=== PATIENT | male | born 1990 | race Caucasian/White ===

== ENCOUNTER 2017-11-11 07:16 | Emergency (ER) | payer SELFPAY ==
[2017-11-11] MEDS ORDERED: IPRATROPIUM/ALBUTEROL 3 ML VIAL NEB ONE (07:37)
[2017-11-11] MEDS ORDERED: ACETAMINOPHEN 325 MG TAB PO ONE (07:55)
[2017-11-11] MEDS ORDERED: ACETAMINOPHEN 325 MG TAB ONE (07:56)
--- NOTE | 2017-11-11 07:58 | RAD ---
EXAM DESCRIPTION: XR CHEST 2 VIEWS CLINICAL HISTORY: chest discomfort, cough, rales FELICITY COMPARISON: None TECHNIQUE: PA/lateral FINDINGS: Heart size is normal. The lungs are clear. No acute bony abnormality. IMPRESSION: No acute cardiopulmonary process. Electronically signed by: Jake Arceo MD 11/11/2017 7:56 AM CDT
[2017-11-11] MEDS ORDERED: predniSONE 20 MG TAB PO ONE (09:05)
[2017-11-11] MEDS ORDERED: AMOXICILLIN & POT CLAVULANATE 875 MG TAB PO ONE (09:05)
[2017-11-11] MEDS ORDERED: ASPIRIN TABLET 325 MG TAB PO ONE (09:06)
[2017-11-11 12:43] VITALS: BP 108/58
--- NOTE | 2017-11-11 13:16 | ED.PDOC ---
History of Present Illness - General Chief Complaint: Cardiovascular Problem Stated Complaint: chest pain Time Seen by Provider: 11/11/17 07:32 Source: patient Exam Limitations: no limitations - History of Present Illness Initial Comments: the patient is a 27-year-old male presenting to the emergency room secondary to feeling of chest pain that is primarily to the left upper sternal border that started this morning when he woke up. He also woke up with a headache. There is some questionable history of illicit substance use. No history of any cardiac problems. 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 No history of any recurrent lung infections. The pain is worse with taking a deep breath. He did have a cough this morning. He does have some rales at the left upper lobe. No abdominal pain. No chest pain elsewhere. No syncope. No palpitations. Again no previous heart problems.headache was relieved after Tylenol here. Timing/Duration: 1-3 hours Severity: moderate Improving Factors: nothing Worsening Factors: movement Associated Symptoms: cough Allergies/Adverse Reactions: Allergies NO KNOWN ALLERGY Allergy (Verified 11/11/17 07:38) Home Medications: Ambulatory Orders Amoxicillin & Pot Clavulanate [Augmentin Tab] 875 mg PO BID #14 tab 11/11/17 predniSONE [Prednisone] 20 mg PO DAILY #5 tab 11/11/17 Review of Systems - Review of Systems Constitutional: States: no symptoms reported EENTM: States: no symptoms reported Respiratory: States: cough Cardiology: States: chest pain Gastrointestinal/Abdominal: States: no symptoms reported Genitourinary: States: no symptoms reported Musculoskeletal: States: no symptoms reported Skin: States: no symptoms reported Neurological: States: headache Endocrine: States: no symptoms reported All other Systems: No Change from Baseline Past Medical History (General) - Patient Medical History Hx Seizures: No Hx Stroke: No Hx Dementia: No Hx Asthma: No Hx of COPD: No Hx Cardiac Disorders: No Hx Congestive Heart Failure: No Hx Pacemaker: No Hx Hypertension: No Hx Thyroid Disease: No Hx Diabetes: No Hx Gastroesophageal Reflux: No Hx Renal Disease: No Hx Cancer: No Hx of HIV: No Hx Hepatitis C: No Hx MRSA: No Surgical History: no surgical history - Vaccination History Hx Tetanus, Diphtheria Vaccination: Yes Hx Influenza Vaccination: No Hx Pneumococcal Vaccination: No Immunizations Up to Date: No - Social History Hx Tobacco Use: Yes Hx Chewing Tobacco Use: No Hx Alcohol Use: No Hx Substance Use: No Hx Substance Use Treatment: No Hx Depression: No Feels Threatened In Home Enviroment: No Feels Threatened In a Relationship: No Hx Physical Abuse: No Hx Emotional Abuse: No Hx Suspected Abuse: No - Female History Patient is a Female of Child Bearing Age (10 -59 yrs old): No Patient : No Family Medical History - Family History Father Hx Cardiac Disease: Yes Physical Exam - Physical Exam General Appearance: Alert, Comfortable, No apparent distress Eye Exam: bilateral normal Ears, Nose, Throat: hearing grossly normal, normal ENT inspection, normal pharynx Neck: full range of motion, supple Respiratory: no respiratory distress, no accessory muscle use, rales - left upper lobe, other - the patient does have chest wall tenderness to palpation just to the left of the upper sternal border. No deformity. No bruising. Cardiovascular/Chest: normal peripheral pulses, regular rate, rhythm, no edema Peripheral Pulses: radial,right: 2+, radial,left: 2+, dorsalis pedis,right: 2+, dorsalis pedis,left: 2+ Gastrointestinal/Abdominal: non tender, soft Rectal Exam: deferred Back Exam: normal inspection, no CVA tenderness, no vertebral tenderness Extremity: normal range of motion, non-tender, normal inspection, no pedal edema , normal capillary refill Neurologic: oxygen tank filler II-XII nml as tested, alert, normal mood/affect, oriented x 3 Skin Exam: normal color Comments: Vital Signs - 24 hr 11/11/17 11/11/17 11/11/17 07:24 07:29 08:03 Temperature 97.6 F Pulse Rate 78 Pulse Rate [ 85 89 Apical] Respiratory 18 22 18 Rate Blood Pressure 137/77 [Left Arm] O2 Sat by Pulse 100 99 Oximetry 11/11/17 11/11/17 11/11/17 08:24 10:51 11:50 Temperature Pulse Rate Pulse Rate [ 85 60 58 L Apical] Respiratory 16 16 18 Rate Blood Pressure 127/71 116/70 102/58 [Left Arm] O2 Sat by Pulse 99 97 96 Oximetry 11/11/17 12:42 Temperature Pulse Rate Pulse Rate [ 63 Apical] Respiratory 16 Rate Blood Pressure 108/58 [Left Arm] O2 Sat by Pulse 100 Oximetry Progress - Progress Progress: 11/11/17 13:18 the patient is a 27-year-old male presenting to the emergency room secondary to chest pain that appears to be pleuritic in nature based on the clinical exam lab work EKG telemetry monitoring. 2 sets of cardiac enzymes are negative. EKG is reassuring. On clinical exam the patient has obvious left upper lobe rails but no definite infiltrate seen on the x-ray. The patient is going to be placed on Augmentin twice daily for the next 7 days for the possibility of an early pneumonia as well as prednisone once daily for the next 5 days for the pleuritis. He needs to stop smoking. 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 He needs to avoid any illicit substances. He needs to keep himself hydrated. ER warnings were given for any significant worsening. He should follow back up with his primary care doctor towards the end of this week. - Results/Orders Results/Orders: 11/11/17 07:36 Telemetry .CONTINUOUS normal sinus rhythm Chest x-ray shows no evidence of any significant infiltrate, cardiomegaly or fluid overload. No pneumothorax. No obvious lobar pneumonia. 11/11/17 07:45 EKG STAT mild right axis deviation. Borderline voltage for LVH. Normal sinus rhythm. Normal corrected QT interval. No acute ST segment changes concerning for ischemia. Laboratory Results - last 24 hr 11/11/17 11/11/17 11/11/17 07:50 07:50 07:50 WBC 5.4 RBC 5.24 Hgb 15.5 Hct 45.9 MCV 87.4 MCH 29.6 MCHC 33.8 RDW 13.7 Plt Count 203 MPV 9.1 Absolute Neuts (auto) 2.70 Absolute Lymphs (auto) 1.80 Absolute Monos (auto) 0.80 Absolute Eos (auto) 0.20 Absolute Basos (auto) 0.00 Neutrophils % 49.5 Lymphocytes % 32.7 Monocytes % 14.1 H Eosinophils % 3.2 Basophils % 0.5 PT 11.8 INR 1.020 PTT (SP) 29.8 Sodium Potassium Chloride Carbon Dioxide Anion Gap BUN Creatinine BUN/Creatinine Ratio Random Glucose Serum Osmolality Calcium Total Bilirubin AST ALT Alkaline Phosphatase Creatine Kinase 138 CK-MB (CK-2) 1.8 CK-MB (CK-2) % Commercial Electric[employer] Troponin I 0.00 L B-Natriuretic Peptide < 5.0 Serum Total Protein Albumin Globulin Albumin/Globulin Ratio Amylase 40 11/11/17 11/11/17 07:50 12:00 WBC RBC Hgb Hct MCV MCH MCHC RDW Plt Count MPV Absolute Neuts (auto) Absolute Lymphs (auto) Absolute Monos (auto) Absolute Eos (auto) Absolute Basos (auto) Neutrophils % Lymphocytes % Monocytes % Eosinophils % Basophils % PT INR PTT (SP) Sodium 139 Potassium 3.6 Chloride 105 Carbon Dioxide 27 Anion Gap 10.6 L BUN 9 Creatinine 0.86 BUN/Creatinine Ratio 10.5 Random Glucose 78 Serum Osmolality 275.1 Calcium 9.1 Total Bilirubin 0.4 AST 24 ALT 19 Alkaline Phosphatase 51 Creatine Kinase 137 CK-MB (CK-2) 1.6 CK-MB (CK-2) % 1.17 Troponin I 0.00 L B-Natriuretic Peptide Serum Total Protein 7.5 Albumin 4.6 Globulin 2.9 Albumin/Globulin Ratio 1.6 Amylase - EKG/XRAY/CT CT Ordered: No CT Interpretation Call Back: No Departure - Departure Clinical Impression: Pleuritis, Pneumonitis Disposition: Discharge to Home or Self Care Condition: Fair Departure Forms: ED Discharge - Pt. Copy, Patient Portal Self Enrollment Instructions: Pleuritic Chest Pain (DC) Diet: regular diet Activity: increase activity as tolerated Prescriptions: Amoxicillin & Pot Clavulanate [Augmentin Tab] 875 mg PO BID #14 tab predniSONE [Prednisone] 20 mg PO DAILY #5 tab Home Medications: Ambulatory Orders Amoxicillin & Pot Clavulanate [Augmentin Tab] 875 mg PO BID #14 tab 11/11/17 predniSONE [Prednisone] 20 mg PO DAILY #5 tab 11/11/17 Additional Instructions: the patient is a 27-year-old male presenting to the emergency room secondary to chest pain that appears to be pleuritic in nature based on the clinical exam lab work EKG telemetry monitoring. 2 sets of cardiac enzymes are negative. EKG is reassuring. On clinical exam the patient has obvious left upper lobe rails but no definite infiltrate seen on the x-ray. The patient is going to be placed on Augmentin twice daily for the next 7 days for the possibility of an early pneumonia as well as prednisone once daily for the next 5 days for the pleuritis. He needs to stop smoking. 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 He needs to avoid any illicit substances. He needs to keep himself hydrated. ER warnings were given for any significant worsening. He should follow back up with his primary care doctor towards the end of this week.
[2017-11-11 13:31] VITALS: TEMP 98.3; O2SAT 99
== END 2017-11-11 13:31 | disposition home or self-care (01) ==
LOC: ER 07:16
DX: J18.9 Pneumonia, unspecified organism (principal); R09.1 Pleurisy; Z87.891 Personal history of nicotine dependence; F17.200 Nicotine dependence, unspecified, uncomplicated
CPT/HCPCS: 36415; 71046; 80053; 82150; 82550; 82553; 83880; 84484; 85025; 85610; 85730; 93005; 94640; J7512; J7620

== ENCOUNTER 2018-07-07 09:22 | Emergency (ER) | payer SELFPAY ==
--- NOTE | 2018-07-07 11:37 | ED.PDOC ---
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 Timing/Duration: 24 hours, constant Severity: moderate Improving Factors: nothing Worsening Factors: nothing Associated Symptoms: other - see hpi Allergies/Adverse Reactions: Allergies NO KNOWN ALLERGY Allergy (Verified 11/11/17 07:38) Home Medications: Ambulatory Orders Prochlorperazine Tab [Compazine Tab] 10 mg PO TID PRN #20 tab 07/07/18 Review of Systems - Review of Systems Constitutional: States: no symptoms reported EENTM: States: no symptoms reported Respiratory: States: no symptoms reported Cardiology: States: no symptoms reported Gastrointestinal/Abdominal: States: no symptoms reported Genitourinary: States: no symptoms reported Musculoskeletal: States: no symptoms reported Skin: States: no symptoms reported Neurological: States: headache Endocrine: States: no symptoms reported Hematologic/Lymphatic: States: no symptoms reported Past Medical History (General) - Patient Medical History Hx Seizures: No Hx Stroke: No Hx Dementia: No Hx Asthma: No Hx of COPD: No Hx Cardiac Disorders: No Hx Congestive Heart Failure: No Hx Pacemaker: No Hx Hypertension: No Hx Thyroid Disease: No Hx Diabetes: No Hx Gastroesophageal Reflux: No Hx Renal Disease: No Hx Cancer: No Hx of HIV: No Hx Hepatitis C: No Hx MRSA: No Surgical History: no surgical history - Vaccination History Hx Tetanus, Diphtheria Vaccination: Yes Hx Influenza Vaccination: No Hx Pneumococcal Vaccination: No - Social History Hx Tobacco Use: Yes Hx Chewing Tobacco Use: No Hx Alcohol Use: No Hx Substance Use: No Hx Substance Use Treatment: No Hx Depression: No Hx Physical Abuse: No Hx Emotional Abuse: No Hx Suspected Abuse: No - Female History Patient : No Family Medical History - Family History Father Family History: Unknown Living Status: Unknown Hx Family Hypertension: Yes - multiple family members Hx Cardiac Disease: Yes Physical Exam - Physical Exam General Appearance: Alert, Comfortable, No apparent distress Eye Exam: bilateral normal Ears, Nose, Throat: hearing grossly normal, normal ENT inspection, normal pharynx Neck: non-tender, full range of motion, supple, normal inspection Respiratory: chest non-tender, lungs clear, normal breath sounds, no respiratory distress Cardiovascular/Chest: normal peripheral pulses, regular rate, rhythm, no murmur Peripheral Pulses: radial,right: 2+, radial,left: 2+ Gastrointestinal/Abdominal: normal bowel sounds, non tender, soft, no organomegaly Back Exam: normal inspection, no CVA tenderness, no vertebral tenderness Extremity: normal range of motion, non-tender, no pedal edema, no calf tenderness Neurologic: no motor/sensory deficits, alert, oriented x 3 Skin Exam: normal color, warm/dry Lymphatic: no adenopathy Progress - Progress Progress: 07/07/18 11:45 Vital Signs - 8 hr 07/07/18 07/07/18 10:02 11:19 Temperature 97.8 F Pulse Rate [ 82 57 L Right Brachial] Respiratory 20 16 Rate Blood Pressure 127/96 90/62 [Right Arm] O2 Sat by Pulse 100 96 Oximetry - Results/Orders Results/Orders: Laboratory Results - last 24 hr 07/07/18 12:10 WBC 7.3 RBC 5.29 Hgb 15.7 Hct 46.0 MCV 86.9 MCH 29.7 MCHC 34.2 RDW 13.2 Plt Count 223 MPV 9.8 Absolute Neuts (auto) 4.90 Absolute Lymphs (auto) 1.60 Absolute Monos (auto) 0.60 Absolute Eos (auto) 0.10 Absolute Basos (auto) 0.00 Neutrophils % 66.9 Lymphocytes % 22.4 Monocytes % 8.8 Eosinophils % 1.5 Basophils % 0.4 PT 10.6 INR 1.06 PTT (SP) 27.0 Sodium 136 Potassium 3.8 Chloride 101 Carbon Dioxide 26 Anion Gap 12.8 BUN 10 Creatinine 0.76 BUN/Creatinine Ratio 13.2 Random Glucose 89 Serum Osmolality 270.5 L Calcium 9.6 Magnesium 2.0 Total Bilirubin 1.5 H Direct Bilirubin 0.2 Indirect Bilirubin 1.3 H AST 26 ALT 25 Alkaline Phosphatase 53 Creatine Kinase 135 CK-MB (CK-2) 1.6 CK-MB (CK-2) % Not Reportable Troponin I < 0.02 Serum Total Protein 8.3 H Albumin 5.1 - EKG/XRAY/CT CT Ordered: Yes - head-no acute abnormalities Departure - Departure Clinical Impression: Dizziness, nonspecific Headache Qualifiers: Headache type: unspecified Headache chronicity pattern: unspecified pattern Intractability: not intractable Qualified Code(s): R51 - Headache Time of Disposition: 13:18 Disposition: Discharge to Home or Self Care Condition: Good Departure Forms: ED Discharge - Pt. Copy, Patient Portal Self Enrollment Instructions: DI for Headache Prescriptions: Prochlorperazine Tab [Compazine Tab] 10 mg PO TID PRN #20 tab PRN Reason: Headache/Migraine Pain Home Medications: Ambulatory Orders Prochlorperazine Tab [Compazine Tab] 10 mg PO TID PRN #20 tab 07/07/18 Additional Instructions: Follow up with primary Md for recheck 08 Jul 2018;May take ALEVE(over the counter)1-2 tablets am/pm as needed for headache
[2018-07-07] MEDS ORDERED: DEXAMETHASONE INJ 4 MG/ML VIAL IV ONE (11:46)
[2018-07-07] MEDS ORDERED: LACTATED RINGERS 1,000 ML IVS ONE (11:46)
[2018-07-07] MEDS ORDERED: PROCHLORPERAZINE INJ 10 MG/2 ML VIAL IV ONE (11:46)
[2018-07-07] MEDS ORDERED: KETOROLAC TROMETHAMINE INJ 30 MG/ML VIAL IV ONE (11:46)
--- NOTE | 2018-07-07 12:14 | CT ---
EXAM DESCRIPTION: Head CLINICAL HISTORY: 28 years Male, headache/dizziness COMPARISON: None. TECHNIQUE: Axial images are obtained from the skull base to the vertex without intravenous contrast with images viewed on bone and brain windows. Coronal and sagittal reformations were provided. This exam was performed according to our departmental dose-optimization program, which includes automated exposure control, adjustment of the mA and/or kV according to patient size and/or use of iterative reconstruction technique. FINDINGS: Brain Parenchyma, ventricles, meninges, and extra-axial spaces: Ventricles and sulci are normal. No abnormal attenuation of brain parenchyma is present. No acute intracranial hemorrhage. No abnormal extra-axial fluid collections are present. No mass effect or herniation present. Vascular Structures: No hyperdense arteries or veins. Calvarium, paranasal sinuses, mastoids, and orbits: Calvarium is intact. Mild mucosal thickening in the anterior left ethmoid sinus. Remaining visualized paranasal sinuses and mastoid air cells are clear. Orbits are unremarkable. IMPRESSION: 1. No acute intracranial abnormality. Electronically signed by: Kash Rivas MD 07/07/2018 12:11 PM CDT
[2018-07-07 13:58] VITALS: BP 119/79; TEMP 96.2; O2SAT 99
== END 2018-07-07 13:58 | disposition home or self-care (01) ==
LOC: ER 09:22
DX: R42 Dizziness and giddiness (principal); R51 Headache
CPT/HCPCS: 36415; 70450; 80048; 80076; 82550; 82553; 84484; 85025; 85610; 85730; J0780; J1100; J1885; J7120